=== PATIENT | male | born 1950 | race Caucasian/White ===

== ENCOUNTER 2019-06-12 06:54 | Emergency (ER) | payer MEDICARE, OTHER ==
[2019-06-12] MEDS ORDERED: Sodium Chloride 0.9% 10 ML Syringe FLUSH PRN (07:23)
[2019-06-12] MEDS ORDERED: Ketorolac 30 MG/ML SDV IVPUSH ONE (07:24)
[2019-06-12] MEDS ORDERED: HYDROmorphone 1 MG/ML Syringe IVPUSH ONE (07:24)
[2019-06-12] MEDS ORDERED: Sodium Chloride 0.9% 1,000 ML IV SCH (07:30)
--- NOTE | 2019-06-12 07:30 | EDM.PDOC ---
ED HPI GENERAL MEDICAL PROBLEM - General Chief Complaint: Flank Pain Stated Complaint: R FLANK PAIN Time Seen by Provider: 06/12/19 07:16 Source of Information: Reports: Patient, Family History Limitations: Reports: No Limitations - History of Present Illness INITIAL COMMENTS - FREE TEXT/NARRATIVE: The patient presents with right flank pain, nausea and vomiting. This started at 4am this morning. He has a history of kidney stones. He has chills but no fever. He has no chest pain or shortness of breath. He has no dysuria or hematuria. The pain radiates to the right abdomen. Onset: Sudden Duration: Hour(s): Location: Reports: Abdomen, Back Quality: Reports: Sharp Severity: Severe Improves with: Reports: None Worsens with: Reports: None Associated Symptoms: Reports: Fever/Chills, Nausea/Vomiting. Denies: Chest Pain , Cough, Headaches, Shortness of Breath Right Flank Pain Score (Numeric/FACES): 8 - Related Data Allergies Allergy/AdvReac Type Severity Reaction Status Date / Time ivp dye Allergy Hives Uncoded 06/12/19 07:44 Home Meds: Home Meds Enalapril [Vasotec] 20 mg pe PO DAILY 06/12/19 [History] Hydrocodone/Acetaminophen [Hydrocodon-Acetaminophen 5-325] 1 - 2 each PO Q6HR PRN #20 tablet 06/12/19 [Rx] Tamsulosin HCl [Flomax] 0.4 mg PO DAILY #7 cap.er.24h 06/12/19 [Rx] hydroCHLOROthiazide [Hydrochlorothiazide] 12.5 mg PO DAILY 06/12/19 [History] ED ROS GENERAL - Review of Systems Review Of Systems: See Below Constitutional: Reports: Chills. Denies: Fever HEENT: Reports: No Symptoms Respiratory: Reports: No Symptoms Cardiovascular: Reports: No Symptoms Endocrine: Reports: No Symptoms GI/Abdominal: Reports: Abdominal Pain, Nausea, Vomiting. Denies: Diarrhea : Reports: Flank Pain (Right) ED EXAM, GI/ABD - Physical Exam Exam: See Below Exam Limited By: No Limitations General Appearance: Alert, No Apparent Distress Ears: Normal External Exam Nose: Normal Inspection Head: Atraumatic, Normocephalic Neck: Normal Inspection Respiratory/Chest: No Respiratory Distress, Lungs Clear, Normal Breath Sounds Cardiovascular: Regular Rate, Rhythm, No Edema, No Murmur GI/Abdominal Exam: Soft, No Organomegaly, No Mass, Tender (Mild tenderness to the right abdomen) Back Exam: CVA Tenderness (R) Extremities: Normal Inspection Neurological: Alert, Oriented, No Motor/Sensory Deficits Course - Vital Signs Last Recorded V/S: Last Vital Signs Temp 97.1 F 06/12/19 07:45 Pulse 73 06/12/19 07:45 Resp 14 06/12/19 07:45 BP 161/103 H 06/12/19 07:45 Pulse Ox 93 L 06/12/19 07:45 - Orders/Labs/Meds Orders: Active Orders 24 hr Category Date Time Status Peripheral IV Care [RC] . DIRECTED Care 06/12/19 07:23 Active Abdomen Pelvis wo Cont [CT] Stat Exams 06/12/19 07:23 Taken Sodium Chloride 0.9% [Normal Saline] 1,000 ml Med 06/12/19 07:30 Active IV ASDIRECTED Sodium Chloride 0.9% [Saline Flush] Med 06/12/19 07:23 Active 10 ml FLUSH ASDIRECTED PRN Peripheral IV Insertion Adult [OM.PC] Stat Oth 06/12/19 07:23 Ordered Medication Orders Sodium Chloride (Normal Saline) 1,000 mls @ 125 mls/hr IV ASDIRECTED ANA CRISTINA Last Admin: 06/12/19 07:33 Dose: 125 mls/hr Sodium Chloride (Saline Flush) 10 ml FLUSH ASDIRECTED PRN PRN Reason: Keep Vein Open Last Admin: 06/12/19 07:35 Dose: 10 ml Labs: Laboratory Tests 06/12/19 06/12/19 06/12/19 Range/Units 07:10 07:20 07:20 WBC 6.85 (4.23-9.07) K/mm3 RBC 5.55 (4.63-6.08) M/mm3 Hgb 18.0 H (13.7-17.5) gm/dl Hct 51.0 (40.1-51.0) % MCV 91.9 (79.0-92.2) fl MCH 32.4 H (25.7-32.2) pg MCHC 35.3 (32.2-35.5) g/dl RDW Std Deviation 45.6 H (35.1-43.9) fL Plt Count 108 L (163-337) K/mm3 MPV 10.7 (9.4-12.3) fl Neut % (Auto) 82.5 H (34.0-67.9) % Lymph % (Auto) 12.4 L (21.8-53.1) % Bandera % (Auto) 4.5 L (5.3-12.2) % Eos % (Auto) 0.4 L (0.8-7.0) Baso % (Auto) 0.1 (0.1-1.2) % Neut # (Auto) 5.64 H (1.78-5.38) K/mm3 Lymph # (Auto) 0.85 L (1.32-3.57) K/mm3 Bandera # (Auto) 0.31 (0.30-0.82) K/mm3 Eos # (Auto) 0.03 L (0.04-0.54) K/mm3 Baso # (Auto) 0.01 (0.01-0.08) K/mm3 Sodium 136 (136-145) mEq/L Potassium 4.1 (3.5-5.1) mEq/L Chloride 95 L (98-107) mEq/L Carbon Dioxide 24 (21-32) mEq/L Anion Gap 21.1 H (5-15) BUN 24 H (7-18) mg/dL Creatinine 1.7 H (0.7-1.3) mg/dL Est Cr Clr Drug Dosing 43.06 mL/min Estimated GFR (MDRD) 40 (>60) mL/min BUN/Creatinine Ratio 14.1 (14-18) Glucose 282 H (80-115) mg/dL Calcium 9.7 (8.5-10.1) mg/dL Total Bilirubin 1.2 H (0.2-1.0) mg/dL AST 76 H (15-37) U/L ALT 157 H (16-63) U/L Alkaline Phosphatase 129 H (46-116) U/L Total Protein 8.1 (6.4-8.2) g/dl Albumin 4.6 (3.4-5.0) g/dl Globulin 3.5 gm/dL Albumin/Globulin Ratio 1.3 (1-2) Lipase 149 (73-393) U/L Urine Color Light yellow (Yellow) Urine Appearance Clear (Clear) Urine pH 5.5 (5.0-8.0) Ur Specific O[place] 1.025 (1.005-1.030) Urine Protein Trace H (Negative) Urine Glucose (UA) 2+ H (Negative) Urine Ketones 1+ H (Negative) Urine Occult Blood 1+ H (Negative) Urine Nitrite Negative (Negative) Urine Bilirubin Negative (Negative) Urine Urobilinogen 0.2 (0.2-1.0) Ur Leukocyte Esterase Negative (Negative) Urine RBC 0-5 (0-5) /hpf Urine WBC 0-5 (0-5) /hpf Ur Epithelial Cells Not seen (0-5) /hpf Urine Bacteria Not seen (FEW) /hpf Urine Mucus Not seen (FEW) /hpf Meds: Medications Generic Name Dose Route Start Last Admin Trade Name Freq PRN Reason Stop Dose Admin Sodium Chloride 1,000 mls @ 125 mls/hr 06/12/19 07:30 06/12/19 07:33 Normal Saline IV 125 mls/hr ASDIRECTED ANA CRISTINA Administration Sodium Chloride 10 ml 06/12/19 07:23 06/12/19 07:35 Saline Flush FLUSH 10 ml ASDIRECTED PRN Administration Keep Vein Open Discontinued Medications Generic Name Dose Route Start Last Admin Trade Name Freq PRN Reason Stop Dose Admin Hydromorphone HCl 1 mg 06/12/19 07:24 06/12/19 07:34 Dilaudid IVPUSH 06/12/19 07:25 1 mg ONETIME ONE Administration Hydromorphone HCl 0.5 mg 06/12/19 09:08 06/12/19 09:14 Dilaudid IVPUSH 06/12/19 09:09 0.5 mg ONETIME ONE Administration Hydromorphone HCl 0.5 mg 06/12/19 10:00 Dilaudid IVPUSH 06/12/19 10:01 ONETIME ONE Ketorolac Tromethamine 30 mg 06/12/19 07:24 06/12/19 07:33 Toradol IVPUSH 06/12/19 07:25 30 mg ONETIME ONE Administration - Re-Assessments/Exams Free Text/Narrative Re-Assessment/Exam: 06/12/19 07:29 I ordered an IV NS at 125mL/hr, zofran 4mg IV, toradol 30mg IV, dilaudid 1mg IV , labs, UA and a CT of his abdomen and pelvis without contrast to look for a kidney stone. 06/12/19 10:07 His CBC looks good. His anion gap was elevated at 21.1. His creatinine is elevated at 1.7. His GFR is low at 40. His total bili is elevated at 1.2. His AST is 76 and ALT is 157. His alk phos is elevated at 129. His lipase is normal. His UA shows blood. He has more pain so I ordered more dilaudid. His CT shows 4mm calculus in the right proximal ureter near the ureteropelvic junction, causing mild right-sided hydronephrosis with perinephric and periureteral fat stranding. Old thickening in the descending duodenum with fat stranding and trace adjacent free fluid. Findings suggest duodenitis. Nonobstructing staghorn calculus in the left kidney. Diffuse fatty liver change. Cholelithiasis. Multiple diverticula without gross focal features of diverticulitis. I will discharge him home with some hydrocodone for pain and flomax and have him follow up with Dr Calderon and his doctor. Departure - Departure Time of Disposition: 10:15 Disposition: Home, Self-Care 01 Condition: Good Clinical Impression: Kidney stone, Ureteral calculus, right, Ureteral colic, Gall stones, Duodenitis - Discharge Information *PRESCRIPTION DRUG MONITORING PROGRAM REVIEWED*: No *COPY OF PRESCRIPTION DRUG MONITORING REPORT IN PATIENT PACO: No Prescriptions: Hydrocodone/Acetaminophen [Hydrocodon-Acetaminophen 5-325] 1 - 2 each PO Q6HR PRN #20 tablet PRN Reason: Pain Tamsulosin HCl [Flomax] 0.4 mg PO DAILY #7 cap.er.24h Referrals: Aaron Nunez MD [Primary Care Provider] - 1 Week Tristen Calderon MD [Ordering Only Provider] - 1 Week Forms: ED Department Discharge Additional Instructions: Drink plenty of fluids. Take the flomax daily. Take the hydrocodone as needed for pain. Follow up with Dr Calderon within a week or two. Strain your urine to see if you pass the stone. Please return if you are worse. Sepsis Event Note - Focused Exam Vital Signs: Vital Signs Temp Pulse Resp BP Pulse Ox 06/12/19 07:45 97.1 F 73 14 161/103 H 93 L Date Exam was Performed: 06/12/19 Time Exam was Performed: 10:07 - My Orders Last 24 Hours: My Active Orders 06/12/19 07:23 Peripheral IV Care [RC] . DIRECTED Abdomen Pelvis wo Cont [CT] Stat Sodium Chloride 0.9% [Saline Flush] 10 ml FLUSH ASDIRECTED PRN Peripheral IV Insertion Adult [OM.PC] Stat 06/12/19 07:30 Sodium Chloride 0.9% [Normal Saline] 1,000 ml IV ASDIRECTED - Assessment/Plan Last 24 Hours: My Active Orders 06/12/19 07:23 Peripheral IV Care [RC] . DIRECTED Abdomen Pelvis wo Cont [CT] Stat Sodium Chloride 0.9% [Saline Flush] 10 ml FLUSH ASDIRECTED PRN Peripheral IV Insertion Adult [OM.PC] Stat 06/12/19 07:30 Sodium Chloride 0.9% [Normal Saline] 1,000 ml IV ASDIRECTED
[2019-06-12] MEDS ORDERED: HYDROmorphone 0.5 MG/0.5 ML Syringe IVPUSH ONE ×2 (09:08→10:00)
[2019-06-12] MEDS ORDERED: Acetaminophen/HYDROcodone 325-5 MG Tab PO ONE (10:37)
--- NOTE | 2019-06-12 16:20 | CT ---
CT abdomen and pelvis Technique: Multiple axial sections were obtained from above the kidneys inferiorly to the pubic symphysis. Intravenous contrast and oral contrast not utilized. Comparison: Previous CT abdomen and pelvis study of 03/18/13. Findings: Collecting system of the right kidney is mildly prominent. This finding is caused by a small obstructing stone measuring about 4.6 mm located at the UPJ. No other ureteral calculi are seen. Large calcification seen within the inferior left kidney measuring 2.1 cm in size which has slightly increased in size from prior exam compatible with early staghorn calculus. Liver that is seen shows diffuse fatty infiltrations. Numerous calcified gallstones seen within the gallbladder. Number of gallstones appears increased from previous exam. Small left adrenal nodule is identified believed to be stable from prior exam measuring 1.2 cm in size. Adrenal glands are otherwise unremarkable. Pancreas appears within normal limits. Aorta shows atherosclerotic calcification without aneurysm. No retroperitoneal adenopathy is seen. Numerous diverticuli are seen within the sigmoid and ascending colon. No findings of diverticulitis is seen. Mesenteric calcification seen within the anterior lower midpelvis believed to be dystrophic and incidental. Appendix not definitely visualized. Bone window settings were reviewed which show diffuse degenerative change within the spine. Impression: 1. Obstructing 4.6 mm stone located within the right UPJ. 2. Increasing size of early staghorn calculus within the lower left kidney. 3. Fatty infiltration within the liver. 4. Other findings as noted above. Diagnostic code #3 This report was dictated in [place] Standard Time I agree with preliminary report from [facility], finalized on 06/12/19, 10:43 AM Central Time
== END 2019-06-12 11:09 | disposition home or self-care (01) ==
LOC: JD.ED 06:54
DX: N13.2 Hydronephrosis with renal and ureteral calculous obstruction (principal); K80.20 Calculus of gallbladder without cholecystitis without obstruction; K29.80 Duodenitis without bleeding; Z91.041 Radiographic dye allergy status
CPT/HCPCS: 36415; 74176; 80053; 81001; 83690; 85025; 96361; 96374; 96375; 96376; 99284; A9270; J1170; J1885; J7030

== ENCOUNTER 2020-01-19 19:24 | Emergency (ER) | payer MEDICARE, BC ==
[2020-01-19] MEDS ORDERED: Acetaminophen/HYDROcodone 325-5 MG Tab PO ONE (20:36)
--- NOTE | 2020-01-19 20:41 | EDM.PDOC ---
ED HPI GENERAL MEDICAL PROBLEM - General Chief Complaint: General Stated Complaint: rib pain Time Seen by Provider: 01/19/20 19:46 Source of Information: Reports: Patient, RN Notes Reviewed History Limitations: Reports: No Limitations - History of Present Illness INITIAL COMMENTS - FREE TEXT/NARRATIVE: Patient is a 70-year-old male who presents to the ED for evaluation of the rib pain. Patient states that he was making his bed yesterday, and ended up tripping on the sheets, and fell backwards striking his right rib area on a towel rack. This is at the very bottom portion of the right posterior rib cage. He states is becoming more difficult to breathe, and very painful when he coughs. He was wondering if he may be broke some ribs. He is not complaining of any shortness of breath, O2 sats are 99% on room air, is not tachycardic with a pulse of 72 bpm. Patient has not taken any sort of [id number] pain medications for this such as Tylenol ibuprofen. He does appreciate a small bruise in the area that is affected. He denies any other symptoms fever/chills, cough/shortness of breath, nausea/vomiting/diarrhea. He is not complaining of any pain in his abdomen. Right Thoracic Pain Score (Numeric/FACES): 7 - Related Data Allergies Allergy/AdvReac Type Severity Reaction Status Date / Time ivp dye Allergy Hives Uncoded 06/12/19 07:44 Home Meds: Home Meds Enalapril [Vasotec] 20 mg pe PO DAILY 06/12/19 [History] Hydrocodone/Acetaminophen [Hydrocodone-Acetamin 5-325 mg] 1 - 2 each PO Q6HR PRN #20 tablet 06/12/19 [Rx] Tamsulosin HCl [Flomax] 0.4 mg PO DAILY #7 cap.er.24h 06/12/19 [Rx] hydroCHLOROthiazide [Hydrochlorothiazide] 12.5 mg PO DAILY 06/12/19 [History] Acetaminophen/HYDROcodone [Bristow 325-5 MG] 1 tab PO Q6H PRN #20 tablet 01/19/20 [Rx] Past Medical History Cardiovascular History: Reports: Hypertension - Past Surgical History GI Surgical History: Reports: Appendectomy Social & Family History - Family History Family Medical History: Noncontributory - Tobacco Use Smoking Status *Q: Never Smoker Second Hand Smoke Exposure: No - Caffeine Use Caffeine Use: Reports: Coffee ED ROS GENERAL - Review of Systems Review Of Systems: Comprehensive ROS is negative, except as noted in HPI. ED EXAM, GENERAL - Physical Exam Exam: See Below Exam Limited By: No Limitations General Appearance: Alert, WD/WN, No Apparent Distress Respiratory/Chest: No Respiratory Distress, Lungs Clear, Normal Breath Sounds, No Accessory Muscle Use, Other (chest tender to palpation over the area of concern on the right inferior posteriolateral rib margin) Cardiovascular: Normal Peripheral Pulses, Regular Rate, Rhythm, No Murmur Extremities: Normal Inspection, Normal Capillary Refill Neurological: Alert, Oriented, Normal Cognition, No Motor/Sensory Deficits Psychiatric: Normal Affect, Normal Mood Skin Exam: Warm, Dry, Intact, No Rash, Ecchymosis (small bruise to affected area of right posterior inferiolateral chest.) Course - Vital Signs Last Recorded V/S: Last Vital Signs Temp 97.4 F 01/19/20 19:40 Pulse 72 01/19/20 19:40 Resp 16 01/19/20 19:40 BP 197/116 H 01/19/20 19:40 Pulse Ox 99 01/19/20 19:40 - Orders/Labs/Meds Orders: Active Orders 24 hr Category Date Time Status Chest 2V [CR] Stat Exams 01/19/20 19:50 Ordered - Re-Assessments/Exams Free Text/Narrative Re-Assessment/Exam: 01/19/20 20:41 Patient presents to the ED for evaluation of his right chest pain. The patient's chest x-ray demonstrates no sign of a pneumothorax or pulmonary contusion in nature. I cannot discern any sort of cracked ribs at this time. Dr. Sanchez could not see any either. Either way he has bruised his chest wall, this will be significantly painful. He will be given 2 tabs of Bristow for pain management, and have his chest Zay wrap to provide compression. He is to follow-up with his primary care provider, sometime within the next week to 10 days to make sure everything is healing as appropriate. Departure - Departure Time of Disposition: 20:43 Disposition: Home, Self-Care 01 Condition: Good Clinical Impression: Acute chest wall pain Contusion of right chest wall Qualifiers: Encounter type: initial encounter Qualified Code(s): S20.211A - Contusion of right front wall of thorax, initial encounter - Discharge Information *PRESCRIPTION DRUG MONITORING PROGRAM REVIEWED*: Yes *COPY OF PRESCRIPTION DRUG MONITORING REPORT IN PATIENT PACO: No Prescriptions: Acetaminophen/HYDROcodone [Bristow 325-5 MG] 1 tab PO Q6H PRN #20 tablet PRN Reason: Pain Instructions: Chest Wall Pain, [id number] Referrals: PCP,Not In Area [Primary Care Provider] - Additional Instructions: You have been evaluated in the ED for your right sided rib pain. Your x-ray demonstrated no obvious fracture or bony abnormality, there is no sign of pneumothorax or lung contusion (bruise). Please use ice as tolerated to the affected area. You may take Tylenol 500 mg or ibuprofen 600mg q6 hrs for pain relief. Please do so until you have a tolerable level of pain with activity. Do not exceed 4000mg Tylenol or 3200mg ibuprofen in a 24 hour time period. You were given a prescription for a strong pain medication, hydrocodone/acetaminophen 5/325 mg, please take 1 tab every 6 hours as needed for pain not relieved by Tylenol or ibuprofen alone. Please note this medi cation does contain Tylenol in it, so do not take more than 4000 mg in a 24-hour time span. These medications can be addictive, so please take as few as possible to achieve adequate pain control. These meds can also be quite constipating, recommend that you increase your oral fluid intake and take a stool softener like MiraLAX while taking these medications. Do not drive while taking this medication. Please return to ED if your symptoms should change or worsen. Sepsis Event Note (ED) - Evaluation Sepsis Screening Result: No Definite Risk - Focused Exam Vital Signs: Vital Signs Temp Pulse Resp BP Pulse Ox 01/19/20 19:40 97.4 F 72 16 197/116 H 99 - My Orders Last 24 Hours: My Active Orders 01/19/20 19:50 Chest 2V [CR] Stat - Assessment/Plan Last 24 Hours: My Active Orders 01/19/20 19:50 Chest 2V [CR] Stat
--- NOTE | 2020-01-19 22:02 | CR ---
Chest: 2 views of the chest were obtained. Frontal view is dark in technique. Comparison: Prior chest x-ray of 03/18/13. Heart size is normal. Tortuous thoracic aorta is seen. Lungs are grossly clear. Bony structures show slight scattered disc space narrowing with minimal scoliosis. Impression: 1. Slightly dark PA view. 2. Other findings as noted above. 3. Nothing acute is definitely appreciated. Diagnostic code #2 This report was dictated in [facility]
== END 2020-01-19 21:20 | disposition home or self-care (01) ==
LOC: JD.ED 19:24
DX: S20.211A Contusion of right front wall of thorax, initial encounter (principal); I10 Essential (primary) hypertension; Z91.041 Radiographic dye allergy status; Z79.899 Other long term (current) drug therapy; W01.10XA Fall on same level from slipping, tripping and stumbling with subsequent striking against unspecified object, initial encounter
CPT/HCPCS: 71046; 99283; A9270

== ENCOUNTER 2022-03-02 11:02 | Emergency (ER) | payer MEDICARE, BC | END 2022-03-02 13:45 | disposition home or self-care (01) | LOC: JD.ED 11:02 | DX: S22.089A Unspecified fracture of T11-T12 vertebra, initial encounter for closed fracture (principal); S32.039A Unspecified fracture of third lumbar vertebra, initial encounter for closed fracture; I10 Essential (primary) hypertension; F17.210 Nicotine dependence, cigarettes, uncomplicated; Z91.041 Radiographic dye allergy status; Z90.49 Acquired absence of other specified parts of digestive tract; W01.10XA Fall on same level from slipping, tripping and stumbling with subsequent striking against unspecified object, initial encounter | CPT/HCPCS: 72072; 72072-26; 72100; 72100-26; 99283; 99284 ==

== ENCOUNTER 2023-09-13 11:40 | Emergency (ER) | payer MEDICARE, BC ==
[2023-09-13] MEDS: Acetaminophen/HYDROcodone 325-5 MG Tab PO ONE (14:24)
== END 2023-09-13 14:25 | disposition home or self-care (01) ==
LOC: JD.ED 11:40
DX: S22.42XA Multiple fractures of ribs, left side, initial encounter for closed fracture (principal); I10 Essential (primary) hypertension; Z91.041 Radiographic dye allergy status; W18.30XA Fall on same level, unspecified, initial encounter; Y93.01 Activity, walking, marching and hiking
CPT/HCPCS: 71101; 73030; 99283; A9270